=== PATIENT | male | born 2000 | race Caucasian/White ===

== ENCOUNTER 2019-03-02 15:49 | Emergency (ER) | payer BC ==
[2019-03-02] MEDS ORDERED: fentaNYL 100 MCG/2 ML SDV NASBOTH ONE (15:52)
[2019-03-02] MEDS ORDERED: Bacitracin Oint 1 GM U/D Packet TOP ONE (15:52)
--- NOTE | 2019-03-02 16:52 | CRLCR ---
INDICATION: Finger injury from trauma TECHNIQUE: Finger radiograph 3 views left 1st COMPARISON: None FINDINGS: Bone: No acute fractures or aggressive bone lesions are identified. Joint: The metacarpophalangeal and interphalangeal joints are normal in appearance. Soft tissue: Unremarkable. No radiopaque foreign bodies are seen. IMPRESSION: 1. No acute osseous injuries or abnormalities are noted. Dictated by: Yannick Neil MD @ 03/02/2019 16:50:26 (Electronically Signed)
[2019-03-02 17:33] VITALS: BP 140/82; PULSE 70
[2019-03-02] MEDS ORDERED: Diphtheria,Pertussis(Acell),Tetanus Vaccine 0.5 ML SDV IM ONE ×2 (17:49→18:05)
[2019-03-02] MEDS ORDERED: Diphtheria/Tetanus Toxoids,Adult (Td) 0.5 ML SDV ONE (17:59)
--- NOTE | 2019-03-02 18:01 | EDM.PDOC ---
ED HPI GENERAL MEDICAL PROBLEM - General Chief Complaint: Lower Extremity Injury/Pain Stated Complaint: thumb is cut by a saw Time Seen by Provider: 03/02/19 17:35 Source of Information: Reports: Patient, Family, RN Notes Reviewed History Limitations: Reports: No Limitations - History of Present Illness INITIAL COMMENTS - FREE TEXT/NARRATIVE: 19-year-old gentleman presents emergency department today with a laceration to his left thumb he injured himself with a handsaw laura the blade across the dorsal surface of the thumb. He has no functional complaints bleeding is controlled Left Hand Pain Score (Numeric/FACES): 5 - Related Data Allergies Allergy/AdvReac Type Severity Reaction Status Date / Time No Known Allergies Allergy Verified 12/12/15 21:31 Home Meds: Home Meds NK [No Known Home Meds] 12/12/15 [History] Past Medical History - Past Health History Medical/Surgical History: Denies Medical/Surgical History - Past Surgical History HEENT Surgical History: Reports: Adenoidectomy, Tonsillectomy Social & Family History - Tobacco Use Smoking Status *Q: Never Smoker - Caffeine Use Caffeine Use: Reports: Coffee, Soda, Tea - Recreational Drug Use Recreational Drug Use: No Review of Systems - Review of Systems Review Of Systems: See Below Musculoskeletal: Reports: Hand Pain Skin: Reports: Wound Neurological: Reports: No Symptoms ED EXAM, GENERAL - Physical Exam Exam: See Below Free Text/Narrative:: Examination of the left thumb I do appreciate a 3 cm laceration across the dorsal surface it is near the PIP joint he has full range of motion of all digits sensation is intact and radial pulses +2 Exam Limited By: No Limitations General Appearance: Alert, Mild Distress ED TRAUMA EXTREMITY PROCEDURES - Laceration/Wound Repair Left Digit - 1st (Thumb) Lac/Wound Length In cm: 3 Appearance: Subcutaneous, Irregular, Clean Distal NVT: Neuro & Vascular Intact, No Tendon Injury Anesthetic Type: Local Local Anesthesia - Lidocaine (Xylocaine): 1% Plain Local Anesthetic Volume: 4cc Skin Prep: Saline Saline Irrigation (cc's): 60 Exploration/Debridement/Repair: Wound Explored, In a Bloodless Field, Explored to Base Closed With: Sutures, Dermabond Suture Size: 4-0 # of Sutures: 6 Suture Type: Interrupted Sterile Dressing Applied: Nurse Tetanus Status Addressed: Yes Complications: No Course - Vital Signs Last Recorded V/S: Last Vital Signs Temp 96.7 F 03/02/19 16:03 Pulse 70 03/02/19 17:32 Resp 20 03/02/19 16:03 BP 140/82 03/02/19 17:32 Pulse Ox 98 03/02/19 16:34 - Orders/Labs/Meds Orders: Active Orders 24 hr Category Date Time Status Vaccines to be Administered [RC] PER UNIT ROUTINE Care 03/02/19 17:49 Active Vaccines to be Administered [RC] PER UNIT ROUTINE Care 03/02/19 18:05 Active Meds: Medications Discontinued Medications Generic Name Dose Route Start Last Admin Trade Name Sergey PRN Reason Stop Dose Admin Bacitracin 1 dose 03/02/19 15:52 03/02/19 16:01 Bacitracin Oint 1 Gm TOP 03/02/19 15:53 1 dose ONETIME ONE Administration Diphtheria/Tetanus/Acell Pertussis 0.5 ml 03/02/19 17:49 03/02/19 18:04 Adacel IM 03/02/19 17:50 Not Given .ONCE ONE Diphtheria/Tetanus/Acell Pertussis 0.5 ml 03/02/19 18:05 03/02/19 18:06 Adacel IM 03/02/19 18:06 0.5 ml .ONCE ONE Administration Fentanyl 50 mcg 03/02/19 15:52 03/02/19 15:57 Sublimaze NASBOTH 03/02/19 15:53 50 mcg ONETIME ONE Administration Lidocaine HCl 5 ml 03/02/19 15:52 03/02/19 16:02 Xylocaine-Mpf 1% INJECT 03/02/19 15:53 5 ml ONETIME ONE Administration Tetanus/Diphtheria Toxoids Confirm 03/02/19 17:59 03/02/19 18:03 Tenivac Administered 03/02/19 18:00 Not Given Dose 0.5 ml .ROUTE .STK-MED ONE Departure - Departure Time of Disposition: 07:06 Disposition: Home, Self-Care 01 Clinical Impression: Laceration of left thumb Qualifiers: Encounter type: initial encounter Damage to nail status: without damage Foreign body presence: without foreign body Qualified Code(s): S61.012A - Laceration without foreign body of left thumb without damage to nail, initial encounter - Discharge Information Instructions: Laceration Care, Adult Referrals: PCP,None [Primary Care Provider] - Forms: ED Department Discharge Additional Instructions: sutures out in 10 days and tylenol/motrin for pain. Return or call with any questions or concerns. - My Orders Last 24 Hours: My Active Orders 03/02/19 17:49 Vaccines to be Administered [RC] PER UNIT ROUTINE 03/02/19 18:05 Vaccines to be Administered [RC] PER UNIT ROUTINE - Assessment/Plan Last 24 Hours: My Active Orders 03/02/19 17:49 Vaccines to be Administered [RC] PER UNIT ROUTINE 03/02/19 18:05 Vaccines to be Administered [RC] PER UNIT ROUTINE Plan: Assessment Acuity = acute Site and laterality = 3 cm laceration left thumb Secondary trauma with a saw Manifestations none Location of injury = Home Lab values = x-ray reveals no fracture or foreign body Plan Suture removal in 10 days, follow wound care instruction sheet return to the emergency department or follow-up with primary care for removal of sutures This note was dictated using [employer] voice recognition software please call with any questions on syntax or grammar.
== END 2019-03-02 18:22 | disposition home or self-care (01) ==
LOC: JP.ED 15:49
DX: S61.012A Laceration without foreign body of left thumb without damage to nail, initial encounter (principal); Z23 Encounter for immunization; W27.0XXA Contact with workbench tool, initial encounter
CPT/HCPCS: 12002; 73140; 90471; 90715; 99283; J2001; J3010

== ENCOUNTER 2019-03-12 06:35 | Emergency (ER) | payer BC ==
[2019-03-12 06:51] VITALS: BP 136/92
--- NOTE | 2019-03-12 06:57 | EDM.PDOC ---
ED HPI GENERAL MEDICAL PROBLEM - General Chief Complaint: Wound Recheck Stated Complaint: REMOVING STITCHES Time Seen by Provider: 03/12/19 06:54 Source of Information: Reports: Patient, RN Notes Reviewed History Limitations: Reports: No Limitations - History of Present Illness INITIAL COMMENTS - FREE TEXT/NARRATIVE: Ear for suture removal no issues - Related Data Allergies Allergy/AdvReac Type Severity Reaction Status Date / Time No Known Allergies Allergy Verified 12/12/15 21:31 Home Meds: Home Meds NK [No Known Home Meds] 12/12/15 [History] Past Medical History - Past Health History Medical/Surgical History: Denies Medical/Surgical History - Past Surgical History HEENT Surgical History: Reports: Adenoidectomy, Tonsillectomy Social & Family History - Caffeine Use Caffeine Use: Reports: Coffee, Soda, Tea ED ROS GENERAL - Review of Systems Review Of Systems: See Below Skin: Reports: Wound ED EXAM, GENERAL - Physical Exam Exam: See Below Free Text/Narrative:: Sutures are removed from the left hand dorsal aspect of the thumb traumatic wound is now clean dry and intact healing well no signs of infection full range of motion of the thumb Course - Vital Signs Last Recorded V/S: Last Vital Signs Temp 98 F 03/12/19 06:50 Pulse 65 03/12/19 06:50 Resp 18 03/12/19 06:50 BP 136/92 H 03/12/19 06:50 Pulse Ox 98 03/12/19 06:50 Departure - Departure Time of Disposition: 06:56 Disposition: Home, Self-Care 01 Condition: Good Clinical Impression: Visit for suture removal - Discharge Information Referrals: PCP,None [Primary Care Provider] - Additional Instructions: Follow-up with primary care as needed - Assessment/Plan Plan: Assessment Acuity = acute Site and laterality = encounter for suture removal Etiology = secondary to trauma Manifestations = none Location of injury = Home Lab values = [none Plan [Follow up with primary care as needed This note was dictated using [employer] voice recognition software please call with any questions on syntax or grammar.
== END 2019-03-12 07:01 | disposition home or self-care (01) ==
LOC: JP.ED 06:35
DX: S61.012D Laceration without foreign body of left thumb without damage to nail, subsequent encounter (principal); W27.0XXD Contact with workbench tool, subsequent encounter
CPT/HCPCS: 99281